=== PATIENT | male | born 1970 | race Caucasian/White ===

== ENCOUNTER 2016-09-06 08:46 | Emergency (ER) | payer SELFPAY ==
[2016-09-06 09:00] VITALS: TEMP 98.4
[2016-09-06 10:02] LABS: BASO # 0.05 K/mm3 (0.0-2.0); BASO % 0.5 % (0.0-3.0); EOS # 0.5 (0.0-0.7); GRAN # 7.19 (1.4-6.5); GRAN % 68.8 % (50.0-68.0); HEMOGLOBIN 14.3 gm/dL (14.0-18.0); LYMPH % 19.1 % (22.0-35.0); MEAN CELL VOLUME 77.4 fL (80.0-105.0); MEAN CORPUSCULAR HEMOGLOBIN 27.6 pg (25.0-35.0); MEAN CORPUSCULAR HGB CONC 35.7 g/dl (31.0-37.0); MEAN PLATELET VOLUME 11.1 fl (7.0-11.0); MONO # 0.7 (0.1-0.6); MONO % 6.6 % (1.0-6.0); PLATELET COUNT 221 10^3/uL (120.0-450.0); RBC 5.18 10^6/uL (3.5-6.1); RED CELL DISTRIBUTION WIDTH 13.9 % (11.5-14.5); WHITE BLOOD COUNT 10.4 10^3/ul (4.5-11.0)
[2016-09-06 10:14] LABS: ALB/GLOB RATIO 1.1 (1.1-1.8); ALBUMIN 4.2 g/dL (3.0-4.8); ALT/SGPT 44 U/L (7-56); AST/SGOT 33 U/L (15-59); BLOOD UREA NITROGEN 16 mg/dL (7-21); CALCIUM 9.8 mg/dL (8.4-10.5); GFR AFRICAN-AMERICAN > 60; GFR NON-AFRICAN AMERICAN > 60
--- NOTE | 2016-09-06 10:15 | CT ---
PROCEDURE: CT HEAD WITHOUT CONTRAST. HISTORY: ringing in left ear, dizziness COMPARISON: None available. TECHNIQUE: Axial computed tomography images were obtained through the head/brain without intravenous contrast. Radiation dose: Total exam DLP = 701 mGy-cm. This CT exam was performed using one or more of the following dose reduction techniques: Automated exposure control, adjustment of the mA and/or kV according to patient size, and/or use of iterative reconstruction technique. FINDINGS: HEMORRHAGE: No intracranial hemorrhage. BRAIN: No mass effect or edema. No atrophy or chronic microvascular ischemic changes. VENTRICLES: Unremarkable. No hydrocephalus. CALVARIUM: Unremarkable. PARANASAL SINUSES: Unremarkable as visualized. No significant inflammatory changes. MASTOID AIR CELLS: Unremarkable as visualized. No inflammatory changes. OTHER FINDINGS: None. IMPRESSION: Negative study
--- NOTE | 2016-09-06 10:19 | ED PDOC ---
Arrival/HPI - General Chief Complaint: ENT Problem Time Seen by Provider: 09/06/16 09:21 Historian: Patient - History of Present Illness Narrative History of Present Illness (Text): 09/06/16 10:14 Patient c/o ringing to the left ear, associated with episodes of dizziness for 2 weeks. Patient sts he is a visitor from [place] who came to [place] 1 month ago and planing to stay for another 5 months. Patient sts he has h/o DM and HTN and takes medications he brought from [place]. Patient sts he didn't check his blood glucose level for several months. Patient sts he had similar ringing in his left ear before and was checked once in [place] by general practitioner, who examined his ear and told his that ear looks ok. patient denies any earache, or other ENT symptoms as well as no chest pain/SOB/headache/extremities weakness or numbness. Symptom Course: Unchanged Past Medical History - Travel History Have you recently traveled outside [place] w/in the past 3 mons?: Yes - Infectious Disease Hx of Infectious Diseases: None - Cardiac Hx Hypertension: Yes - Endocrine/Metabolic Hx Diabetes Mellitus Type 2: Yes - Psychiatric Hx Substance Use: No Family/Social History - Physician Review Nursing Documentation Reviewed: Yes Family/Social History: Unknown Family HX Smoking Status: Never Smoked Hx Alcohol Use: No Hx Substance Use: No Allergies/Home Meds Allergies/Adverse Reactions: Allergies No Known Allergies Allergy (Verified 09/06/16 09:00) Review of Systems - Physician Review All systems were reviewed & negative as marked: Yes - Review of Systems ENT: Tinnitus Neurological: Dizziness Physical Exam Vital Signs Reviewed: Yes Vital Signs Temp Pulse Resp BP Pulse Ox 09/06/16 12:28 88 18 135/94 H 100 09/06/16 10:42 98.4 F 82 17 151/74 H 97 09/06/16 09:00 98.4 F 93 H 17 140/87 97 09/06/16 08:56 98.4 F 93 H 17 140/87 97 Temperature: Afebrile Blood Pressure: Normal Pulse: Regular Respiratory Rate: Normal Appearance: Positive for: Well-Appearing, Non-Toxic, Comfortable Pain Distress: None Mental Status: Positive for: Alert and Oriented X 3 - Systems Exam Head: Present: Atraumatic, Normocephalic Pupils: Present: PERRL Extroacular Muscles: Present: EOMI Conjunctiva: Present: Normal Ears: Present: Normal, NORMAL TM, Normal Canal. No: Erythema, TM Bulging, Fluid Mouth: Present: Moist Mucous Membranes Pharnyx: Present: Normal. No: ERYTHEMA, EXUDATE Nose (External): Present: Atraumatic Neck: Present: Normal Range of Motion. No: MIDLINE TENDERNESS, Paraspinal Tenderness Respiratory/Chest: Present: Clear to Auscultation, Good Air Exchange Cardiovascular: Present: Regular Rate and Rhythm, Normal S1, S2. No: Murmurs Abdomen: Present: Normal Bowel Sounds. No: Tenderness, Distention Upper Extremity: Present: Normal Inspection, Normal ROM Lower Extremity: Present: Normal Inspection, Normal ROM. No: Edema Neurological: Present: GCS=15, CN II-XII Intact, Speech Normal, Motor Func Grossly Intact, Normal Sensory Function, Normal Cerebellar Funct, Gait Normal Skin: Present: Warm, Dry, Normal Color. No: Rashes Psychiatric: Present: Alert, Oriented x 3, Normal Insight Medical Decision Making ED Course and Treatment: 09/06/16 17:[address] head are w/o acute changes. Patient was d/c home with Clinic and ENT follow up. - Lab Interpretations Lab Results: 09/06/16 09:43 09/06/16 09:43 Lab Results 09/06/16 09:43: Sodium 137, Potassium 4.9, Chloride 99, Carbon Dioxide 27, Anion Gap 16, BUN 16, Creatinine 0.7, Est GFR ( Amer) > 60, Est GFR (Non- Af Amer) > 60, Random Glucose 241 H, Calcium 9.8, Total Bilirubin 0.8, AST 33, ALT 44, Alkaline Phosphatase 87, Total Protein 8.1, Albumin 4.2, Globulin 3.9, Albumin/Globulin Ratio 1.1 09/06/16 09:43: WBC 10.4, RBC 5.18, Hgb 14.3, Hct 40.1 L, MCV 77.4 L, MCH 27.6, MCHC 35.7, RDW 13.9, Plt Count 221, MPV 11.1 H, Gran % 68.8 H, Lymph % (Auto) 19.1 L, [place] % (Auto) 6.6 H, Eos % (Auto) 5.0, Baso % (Auto) 0.5, Gran # 7.19 H , Lymph # 2.0, [place] # 0.7 H, Eos # 0.5, Baso # 0.05 - RAD Interpretation Radiology Orders: 09/06/16 09:25 HEAD W/O CONTRAST [CT] Stat Disposition/Present on Arrival - Present on Arrival Any Indicators Present on Arrival: No History of DVT/PE: No History of Uncontrolled Diabetes: No Urinary Catheter: No History of Decub. Ulcer: No History Surgical Site Infection Following: None - Disposition Have Diagnosis and Disposition been Completed?: Yes Diagnosis: Tinnitus of left ear Disposition: HOME/ ROUTINE Disposition Time: 11:33 Patient Plan: Discharge Condition: STABLE Discharge Instructions (ExitCare): Tinnitus (ED) Additional Instructions: Follow up with ENT specialist and in Clinic within 1-2 days. Return to ED if feels worse. Prescriptions: Meclizine [Antivert] 12.5 mg PO TID #30 tab Referrals: Yaneth Duncan [Outside] - Follow up with primary [facility] [place]] - Follow up with primary Sam Rdz DO [Staff Provider] - Follow up with primary Forms: Yaneth Horne (Pashto)
[2016-09-06 12:29] VITALS: BP 135/94; PULSE 88; RESP 18; O2SAT 100
== END 2016-09-06 12:48 | disposition home or self-care (01) ==
LOC: ED 08:46
DX: H93.12 Tinnitus, left ear (principal)